=== PATIENT | female | born 1955 ===

== ENCOUNTER 2016-07-18 00:07 | Emergency (ER) | payer BC ==
[2016-07-18] MEDS ORDERED: Alum Hydrox/Mag Hydrox/Simeth 30 ML, Lidocaine 2% 15 ML PO STA ×2 (01:00)
[2016-07-18] MEDS ORDERED: Sodium Chloride 0.9% 1,000 ML IV SCH (01:15)
--- NOTE | 2016-07-18 01:34 | EDM.PDOC ---
ED HPI GI/ABDOMINAL - General Chief Complaint: Abdominal Pain Stated Complaint: ABDOMINAL PAIN Time Seen by Provider: 07/18/16 00:49 Source of Information: Reports: Patient, RN notes reviewed History Limitations: Reports: No limitations - History of Present Illness INITIAL COMMENTS - FREE TEXT/NARRATIVE: The patient states that she developed sudden-onset epigastric pain around 23:00 tonight, while she was watching TV. The pain was sharp and burning in character. It spread across her upper abdomen and radiated through to her back. She had nausea, but no emesis. It has now nearly resolved. No recent constipation, diarrhea, urinary symptoms, or fever. The patient had dinner around 17:00, consisting of roast beef, stewed tomatoes, and hominy. The patient states that she has had similar pain a couple of times in the past. The first was around 2 years ago, the second a few months ago. She did not seek medical evaluation for either episode. - Related Data Allergies/ADRs: Allergies Allergy/AdvReac Type Severity Reaction Status Date / Time No Known Allergies Allergy Verified 07/18/16 00:29 Home Meds: Home Meds . [No Known Home Meds] 04/06/16 [History] Past Medical History Musculoskeletal History: Reports: Osteoarthritis - Past Surgical History HEENT Surgical History: Reports: Tonsillectomy Female Surgical History: Reports: Hysterectomy, Salpingo-oophorectomy, Tubal ligation Musculoskeletal Surgical History: Reports: Hip replacement (left) Social & Family History - Family History Family Medical History: Noncontributory - Tobacco Use Smoking Status *Q: Never Smoker - Caffeine Use Caffeine Use: Reports: Coffee - Alcohol Use Alcohol Use History: No - Recreational Drug Use Recreational Drug Use: No - Living Situation & Occupation Living situation: Reports: , with spouse Occupation: employed ([employer]) ED ROS GENERAL - Review of Systems Review Of Systems: See Below Constitutional: Reports: no symptoms HEENT: Reports: Other (Recent viral URI symptoms, treated with antibiotics that she finished 07/17/2016) Respiratory: Reports: No Symptoms Cardiovascular: Reports: No symptoms Endocrine: Reports: no symptoms GI/Abdominal: Reports: No symptoms : Reports: no symptoms Musculoskeletal: Reports: no symptoms Skin: Reports: no symptoms Neurological: Reports: No Symptoms Psychiatric: Reports: No symptoms Hematologic/Lymphatic: Reports: no symptoms Immunologic: Reports: no symptoms ED EXAM, GI/ABD - Physical Exam Exam: See Below Exam Limited By: No limitations General Appearance: alert, WD/WN, no apparent distress Eyes: bilateral: normal appearance, EOMI Ears: normal external exam, hearing grossly normal Nose: normal inspection, no blood Throat/Mouth: Normal inspection, Normal lips, Normal voice, No airway compromise Head: atraumatic, normocephalic Neck: normal inspection, full range of motion Respiratory/Chest: no respiratory distress, lungs clear, normal breath sounds, no accessory muscle use Cardiovascular: normal peripheral pulses, regular rate, rhythm, no gallop, no JVD, no murmur, no rub GI/Abdominal: normal bowel sounds, soft, no organomegaly, no distention, no abnormal bruit, no mass, tenderness (Primarily in the epigastrium, somewhat less tender in the right upper quadrant. Nontender elsewhere.). No: guarding, Hoyos's sign (Female) Exam: Deferred Rectal (Female) Exam: Deferred Back Exam: normal inspection, full range of motion. No: CVA tenderness (L), CVA tenderness (R) Extremities: normal inspection, normal range of motion, no pedal edema, normal capillary refill Neurological: alert, oriented, normal cognition, no motor/sensory deficits Psychiatric: normal affect Skin Exam: Warm, Dry, Intact, Normal color, No rash Lymphatic: no adenopathy Course - Vital Signs Last Recorded V/S: Last Vital Signs Temp 36.9 C 07/18/16 00:26 Pulse 78 07/18/16 00:26 Resp 18 07/18/16 00:26 BP 148/78 H 07/18/16 00:26 Pulse Ox 97 07/18/16 00:26 - Orders/Labs/Meds Orders: Active Orders 24 hr Category Date Time Status Abdomen Pelvis w Cont [CT] Stat Exams 07/18/16 01:01 Taken Sodium Chloride 0.9% [Normal Saline] 1,000 ml Med 07/18/16 01:15 Active IV ASDIRECTED Sodium Chloride 0.9% [Saline Flush] Med 07/18/16 02:42 Active 10 ml FLUSH ONETIME PRN Medication Orders Sodium Chloride (Normal Saline) 1,000 mls @ 150 mls/hr IV ASDIRECTED SARAH Last Admin: 07/18/16 01:12 Dose: 150 mls/hr Sodium Chloride (Saline Flush) 10 ml FLUSH ONETIME PRN PRN Reason: IV FLUSH Last Admin: 07/18/16 02:54 Dose: 10 ml Labs: Laboratory Tests 07/18/16 07/18/16 07/18/16 Range/Units 01:14 01:14 02:21 WBC 9.57 (3.98-10.04) K/mm3 RBC 4.61 (3.98-5.22) M/mm3 Hgb 13.8 (11.2-15.7) gm/L Hct 40.6 (34.1-44.9) % MCV 88.1 (79.4-94.8) fl MCH 29.9 (25.6-32.2) pg MCHC 34.0 (32.2-35.5) g/dl RDW Std Deviation 40.6 (36.4-46.3) fL Plt Count 121 L (182-369) K/mm3 MPV 10.0 (9.4-12.3) fl Neutrophils % (Manual) 61 H (40-60) % Band Neutrophils % 2 (0-10) % Lymphocytes % (Manual) 32 (20-40) % Atypical Lymphs % 0 % Monocytes % (Manual) 2 (2-10) % Eosinophils % (Manual) 3 (0.7-5.8) % Basophils % (Manual) 0 L (0.1-1.2) Platelet Estimate Adequate RBC Morph Comment Normal Sodium 145 (136-145) mEq/L Potassium 3.7 (3.5-5.1) mEq/L Chloride 108 H (98-107) mEq/L Carbon Dioxide 26 (21-32) mEq/L Anion Gap 14.7 (5-15) BUN 20 H (7-18) mg/dL Creatinine 0.9 (0.55-1.02) mg/dL Est Cr Clr Drug Dosing 55.68 mL/min Estimated GFR (MDRD) > 60 (>60) mL/min BUN/Creatinine Ratio 22.2 H (14-18) Glucose 138 H (74-106) mg/dL Calcium 8.8 (8.5-10.1) mg/dL Total Bilirubin 0.6 (0.2-1.0) mg/dL AST 173 H (15-37) U/L ALT 154 H (14-59) U/L Alkaline Phosphatase 107 (46-116) U/L Total Protein 6.8 (6.4-8.2) g/dl Albumin 3.6 (3.4-5.0) g/dl Globulin 3.2 gm/dL Albumin/Globulin Ratio 1.1 (1-2) Lipase 245 (73-393) U/L Urine Color Yellow (Yellow) Urine Appearance Clear (Clear) Urine pH 7.0 (5.0-8.0) Ur Specific [place] 1.020 (1.005-1.030) Urine Protein Negative (Negative) Urine Glucose (UA) Negative (Negative) Urine Ketones Negative (Negative) Urine Occult Blood Negative (Negative) Urine Nitrite Negative (Negative) Urine Bilirubin Negative (Negative) Urine Urobilinogen 0.2 (0.2-1.0) Ur Leukocyte Esterase Negative (Negative) Urine RBC 0-5 (0-5) /hpf Urine WBC 0-5 (0-5) /hpf Ur Epithelial Cells Not Reportable Ur Squamous Epith Cells 0-5 (0-5) /hpf Urine Bacteria Few (FEW) /hpf Urine Mucus Not seen (FEW) /hpf Meds: Medications Generic Name Dose Route Start Last Admin Trade Name Freamber PRN Reason Stop Dose Admin Sodium Chloride 1,000 mls @ 150 mls/hr 07/18/16 01:15 07/18/16 01:12 Normal Saline IV 150 mls/hr ASDIRECTED SARAH Administration Sodium Chloride 10 ml 07/18/16 02:42 07/18/16 02:54 Saline Flush FLUSH 10 ml ONETIME PRN Administration IV FLUSH Discontinued Medications Generic Name Dose Route Start Last Admin Trade Name Farshad PRN Reason Stop Dose Admin Al Hydroxide/Mg Hydroxide 30 0 ml 07/18/16 01:00 07/18/16 01:12 ml/ Lidocaine HCl 15 ml PO 07/18/16 01:01 45 ml ONETIME STA Administration Diatrizoate Meglum/Diatrizoate Sod 120 ml 07/18/16 02:42 07/18/16 02:53 Gastrografin 37% PO 07/18/16 02:43 90 ml ONETIME ONE Administration Iopamidol 150 ml 07/18/16 02:42 07/18/16 02:53 Isovue-300 (61%) IVPUSH 07/18/16 02:43 125 ml ONETIME ONE Administration - Radiology Interpretation Free Text/Narrative:: CT of the abdomen and pelvis is read by [facility] as: 1. No acute findings. 2. 3.2 cm right renal mass. Suggest elective urology consultation. - Re-Assessments/Exams Free Text/Narrative Re-Assessment/Exam: 07/18/16 04:11 The patient states that the GI cocktail had no effect on her pain. Test results discussed with the patient. Today's workup is grossly unremarkable , with the exception of mildly elevated transaminases, and a 3.2 cm right renal mass. Since the elevated transaminases are not associated with an elevated bilirubin or alkaline phosphatase, the cause of it is most likely hepatic steatosis, and not evidence of biliary colic. Nevertheless, clinically, I suspect that the patient's pain is a representation of biliary colic, and I will therefore recommend she eat a low-fat diet, and I will refer her to Dr. Mino Washington for further evaluation. With respect to the renal mass, I will refer the patient to Dr. Mujica for further evaluation. Departure - Departure Time of Disposition: 04:15 Disposition: Home, Self-Care 01 Condition: good Clinical Impression: Abdominal pain of unknown etiology Referrals: Nestor Root MD [Primary Care Provider] - Mino Washington MD [Physician] - Gene Mujica MD [Physician] - Forms: ED Department Discharge Additional Instructions: You were seen in the emergency room for upper abdominal pain that radiated through to your back. Workup in the ER included blood work, a urinalysis, and a CT scan of your abdomen and pelvis. Your entire workup was unremarkable, with the exception of mildly elevated liver enzymes (transaminases) and the finding of a 3.2 cm mass in your right kidney. Neither of these findings would explain your pain. Your mildly elevated liver enzymes are most likely due to a fatty liver. This is a common finding. You can discuss this with Dr. Root when you next see him. The mass in your right kidney needs to be further evaluated. Please followup with the Urologist Dr. Mujica at the next available appointment. Although we were not able to prove it, we suspect that the pain you were experiencing is due to gallbladder disease (biliary colic). We recommend that you eat a low-fat diet, and followup with the Surgeon Dr. Mino Washington, for further evaluation. If any other problems, please do not hesitate to return to the ER. - My Orders Last 24 Hours: My Active Orders 07/18/16 01:01 Abdomen Pelvis w Cont [CT] Stat 07/18/16 01:15 Sodium Chloride 0.9% [Normal Saline] 1,000 ml IV ASDIRECTED 07/18/16 02:42 Sodium Chloride 0.9% [Saline Flush] 10 ml FLUSH ONETIME PRN - Assessment/Plan Last 24 Hours: My Active Orders 07/18/16 01:01 Abdomen Pelvis w Cont [CT] Stat 07/18/16 01:15 Sodium Chloride 0.9% [Normal Saline] 1,000 ml IV ASDIRECTED 07/18/16 02:42 Sodium Chloride 0.9% [Saline Flush] 10 ml FLUSH ONETIME PRN
[2016-07-18] MEDS ORDERED: Iopamidol 612 MG/ML 150 ML Bottle IVPUSH ONE (02:42)
[2016-07-18] MEDS ORDERED: Diatrizoate Meglumine/Diatrizoate Sodium 37% 120 ML Bottle PO ONE (02:42)
[2016-07-18] MEDS ORDERED: Sodium Chloride 0.9% 10 ML Syringe FLUSH PRN (02:42)
[2016-07-18 04:31] VITALS: BP 125/75
--- NOTE | 2016-07-19 19:20 | CT ---
CT abdomen and pelvis Technique: Multiple axial sections were obtained from above the dome of the diaphragm inferiorly through the pubic symphysis. Intravenous and oral contrast was utilized. Delayed images were also obtained through the bladder. Comparison: No previous study. Findings: Visualized lung bases show nothing acute. Liver shows mild fatty infiltration without focal abnormality. Spleen appears within normal limits. Gallbladder shows no calcified gallstones. Pancreas is within normal limits. Solid appearing right sided renal mass is identified. This measures approximately 3.3 cm x 2.8 cm in size and is highly suspicious for renal cell carcinoma. Left kidney is unremarkable. Aorta shows no aneurysmal dilatation. No retroperitoneal adenopathy or mesenteric abnormalities are seen. No pelvic mass or adenopathy is seen. Delayed images show contrast within the bladder. No bowel dilatation is seen. No free fluid or inflammatory change is seen. Bone window settings show mild disc space narrowing and spondylolisthesis at L4-L5 due to degenerative apophyseal change. Disc space narrowing and vacuum phenomena seen at L5-S1. Impression: 1. Solid appearing right sided renal mass measuring 3.3 x 2.8 cm. This is highly suspect for renal cell carcinoma. Urologic consultation is recommended. 2. Other nonacute findings as described above. Diagnostic code #9 Agree with preliminary report issued by [facility] (preliminary [facility] report dictated on 07/18/16, 4:09 AM Central Time)
== END 2016-07-18 04:30 | disposition home or self-care (01) ==
LOC: JD.ED 00:07
DX: R10.13 Epigastric pain (principal); M19.90 Unspecified osteoarthritis, unspecified site; Z96.642 Presence of left artificial hip joint
CPT/HCPCS: 36415; 74177; 80053; 81001; 83690; 85025; 96360; 96361; 99284; A9270; J7040; J7050; Q9963; Q9967; 99283